=== PATIENT | female | born 1950 | race Caucasian/White ===

== ENCOUNTER 2018-05-09 12:49 | Emergency (ER) | payer MEDICARE ==
[~2018-05-09] VITALS: Ht 157.5 cm; Wt 47.6 kg
[2018-05-09 13:16] LABS: URINE BILIRUBIN NEGATIVE (Negative); URINE BLOOD NEGATIVE (Negative); URINE CLARITY CLEAR; URINE COLOR YELLOW; URINE GLUCOSE-RANDOM NEGATIVE (Negative); URINE KETONES NEGATIVE (Negative); URINE LEUKOCYTES-REFLEX NEGATIVE (Negative); URINE NITRITE-REFLEX NEGATIVE (Negative); URINE PROTEIN NEGATIVE (Negative); URINE SPECIFIC GRAVITY 1.015 (1.005-1.030); URINE UROBILINOGEN 0.2 E.U./dl (0.2-1.0)
[2018-05-09 13:34] LABS: ABSOLUTE LYMPHOCYTES 1.8 thou/uL (0.8-5.3); ABSOLUTE MONOCYTES 0.4 thou/uL (0.0-1.2); ABSOLUTE NEUTROPHILS 9.5 thou/uL (1.6-8.1); BASOPHILS 0.3 %; HEMOGLOBIN 11.3 gm/dL (12.0-15.0); LYMPHOCYTES 15.3 %; MCH 30.3 pg (26.0-34.0); MCHC 32.2 g/dL (28.0-37.0); MCV 93.9 fL (80.0-100.0); MONOCYTES 3.7 %; MPV 9.7 fl. (7.2-11.1); NUCLEATED RBCS 0 /100WBC; PLATELET COUNT* 199 thou/uL (150-400); POLYS 80.7 %; RBC 3.73 mil/uL (4.20-5.00); RDW-CV 14.1 % (10.5-14.5); WBC 11.8 thou/uL (4.0-11.0)
[2018-05-09 13:36] LABS: AMP/METHAMP Negative (Negative); BARBITURATES Negative (Negative); BENZODIAZEPINES Negative (Negative); COCAINE Negative (Negative); METHADONE Negative (Negative); OPIATES Negative (Negative); PCP Negative (Negative); THC Negative (Negative)
[2018-05-09 13:55] LABS: ANION GAP 5 mmol/L (7-16); BUN 47 mg/dL (7-18); CALCIUM 8.4 mg/dL (8.5-10.1); CHLORIDE 106 mmol/L (98-107); CO2 28 mmol/L (21-32); CREATININE 0.7 mg/dL (0.6-1.3); GLUCOSE 167 mg/dL (70-99); POTASSIUM 3.9 mmol/L (3.5-5.1); SODIUM 139 mmol/L (136-145)
[2018-05-09 14:06] LABS: ALBUMIN 3.5 g/dL (3.4-5.0); ALKALINE PHOSPHATASE 61 U/L (46-116); LIPASE 99 U/L (73-393); NT-PRO BRAIN NAT PEPTIDE 75 pg/mL (<300); SGOT 14 U/L (15-37); SGPT 20 U/L (30-65); TOTAL BILIRUBIN 0.2 mg/dL (<0.1-1.0); TOTAL PROTEIN 6.3 g/dL (6.4-8.2); TROPONIN-I LEVEL <0.06 ng/mL (<0.06)
[2018-05-09 14:39] LABS: PROTIME 10.7 Seconds (9.20-11.50)
[2018-05-09 16:00] VITALS: BP 115/70
[2018-05-09 22:05] LABS: T3 UPTAKE 28 % (24-39)
[2018-05-10] MEDS ORDERED: CENTRUM SILVER1 EAC4 PO (10:36)
[2018-05-10] MEDS ORDERED: TUMS PO (10:37)
== END 2018-05-09 16:02 | disposition home or self-care (01) ==
LOC: M.ERS 12:49
PROVIDERS: Emergency Medicine
DX: E86.0 Dehydration (principal)

== ENCOUNTER 2018-05-10 08:32 | Inpatient (IN) | payer MEDICARE ==
[~2018-05-10] VITALS: Ht 157.5 cm; Wt 50.8 kg
[2018-05-10] VITALS (15 sets, daily range): BP systolic 93–118; BP diastolic 25–61
[2018-05-10 08:48] LABS: ABSOLUTE LYMPHOCYTES 1.8 thou/uL (0.8-5.3); ABSOLUTE MONOCYTES 0.7 thou/uL (0.0-1.2); ABSOLUTE NEUTROPHILS 11.9 thou/uL (1.6-8.1); BASOPHILS 0.1 %; LYMPHOCYTES 12.4 %; MCH 30.7 pg (26.0-34.0); MCHC 32.1 g/dL (28.0-37.0); MCV 95.6 fL (80.0-100.0); MONOCYTES 4.8 %; MPV 8.8 fl. (7.2-11.1); NUCLEATED RBCS 0 /100WBC; PLATELET COUNT* 136 thou/uL (150-400); POLYS 82.7 %; RBC 1.84 mil/uL (4.20-5.00); RDW-CV 14.3 % (10.5-14.5); WBC 14.4 thou/uL (4.0-11.0)
[2018-05-10 08:54] LABS: HEMATOCRIT 17.6 % (37.0-47.0); HEMOGLOBIN 5.6 gm/dL (12.0-15.0)
[2018-05-10 09:01] LABS: APTT 20.2 Seconds (25.0-31.3); INR 1.2; PROTIME 11.8 Seconds (9.20-11.50)
[2018-05-10 09:18] LABS: ALBUMIN 2.4 g/dL (3.4-5.0); ALKALINE PHOSPHATASE 38 U/L (46-116); ANION GAP 7 mmol/L (7-16); BUN 35 mg/dL (7-18); CALCIUM 7.4 mg/dL (8.5-10.1); CHLORIDE 111 mmol/L (98-107); CK-MB MASS 0.8 ng/mL (<0.5-3.6); CO2 24 mmol/L (21-32); CREATININE 0.6 mg/dL (0.6-1.3); GLUCOSE 208 mg/dL (70-99); LIPASE 94 U/L (73-393); MAGNESIUM 1.8 mg/dL (1.8-2.4); NT-PRO BRAIN NAT PEPTIDE 101 pg/mL (<300); POTASSIUM 3.6 mmol/L (3.5-5.1); SGOT 13 U/L (15-37); SGPT 14 U/L (30-65); SODIUM 142 mmol/L (136-145); TOTAL BILIRUBIN 0.1 mg/dL (<0.1-1.0); TOTAL PROTEIN 4.4 g/dL (6.4-8.2); TROPONIN-I LEVEL <0.06 ng/mL (<0.06)
[2018-05-10] MEDS ORDERED: CENTRUM SILVER1 EAC4 PO (10:36)
[2018-05-10] MEDS ORDERED: TUMS PO (10:37)
--- NOTE | 2018-05-10 11:41 | EKG ---
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 NICOLE : 1950 Requested By: Charlie Pro Order Number: [id number] MD: Jamie Cha Measurements Intervals [place] Rate: 123 P: 65 [place]: 83 QRS: 11 QRSD: 73 T: 86 QT: 302 QTc: 432 Interpretive Statements Sinus tachycardia Nonspecific T abnormalities, lateral leads No previous ECG available for comparison Electronically Signed On 05-10-2018 11:41:06 MOTION PICTURE CAMERA OPERATOR by Jamie Cha [email or web address] <ELECTRONICALLY SIGNED> By: Jamie Cha MD, [facility] 05/10/18 1141 1300 1300 Jamie Cha MD, FACC /EPI
--- NOTE | 2018-05-10 11:47 | EKG ---
[place] [address] ELECTROCARDIOGRAM REPORT Name: LARISSA GOMEZ Room: [address] ADM IN M.R.#: [id number] Admission: 05/10/18 Attend Phys: Reema Herrera MD Discharge: Date of : 50 Report #: [id number] THIS REPORT FOR: //name// [facility] ED Test Date: 2018-05-10 Test Time: 08:35:25 Pat Name: LARISSA GOMEZ Department: Room: [facility] Gender: F Disposal Man: Carlso REY : 1950 Requested By: Filemon Parra Order Number: [id number] MD: Jamie Cha Measurements Intervals [place] Rate: 136 P: 81 [place]: 100 QRS: 35 QRSD: 68 T: 78 QT: 310 QTc: 467 Interpretive Statements Sinus tachycardia Nonspecific repol abnormality, diffuse leads Electronically Signed On 05-10-2018 11:46:46 JUTE BAG CUTTING MACHINE OPERATOR by Jamie Cha [email or web address] <ELECTRONICALLY SIGNED> By: Jamie Cha MD, [facility] 05/10/18 1146 [id number] Jamie Cha MD, FACC /EPI
[2018-05-10 16:41] LABS: ABSOLUTE LYMPHOCYTES 1.7 thou/uL (0.8-5.3); ABSOLUTE MONOCYTES 0.7 thou/uL (0.0-1.2); ABSOLUTE NEUTROPHILS 8.3 thou/uL (1.6-8.1); BASOPHILS 0.4 %; MCH 31.5 pg (26.0-34.0); MCV 92.7 fL (80.0-100.0); MONOCYTES 6.5 %; MPV 9.3 fl. (7.2-11.1); NUCLEATED RBCS 0 /100WBC; PLATELET COUNT* 102 thou/uL (150-400); POLYS 77.1 %; RBC 1.88 mil/uL (4.20-5.00); RDW-CV 13.8 % (10.5-14.5); WBC 10.8 thou/uL (4.0-11.0)
[2018-05-10 16:46] LABS: HEMATOCRIT 17.4 % (37.0-47.0); HEMOGLOBIN 5.9 gm/dL (12.0-15.0)
[2018-05-10 23:36] LABS: ABSOLUTE NEUTROPHILS 8.6 thou/uL (1.6-8.1); BASOPHILS 0.4 %; EOSINOPHILS 0.1 %; HEMATOCRIT 22.7 % (37.0-47.0); HEMOGLOBIN 7.6 gm/dL (12.0-15.0); LYMPHOCYTES 16.9 %; MCH 30.5 pg (26.0-34.0); MCHC 33.7 g/dL (28.0-37.0); MCV 90.5 fL (80.0-100.0); MONOCYTES 8.8 %; MPV 9.1 fl. (7.2-11.1); NUCLEATED RBCS 0 /100WBC; PLATELET COUNT* 82 thou/uL (150-400); POLYS 73.8 %; RDW-CV 14.1 % (10.5-14.5); WBC 11.6 thou/uL (4.0-11.0)
[2018-05-11] VITALS (15 sets, daily range): BP systolic 84–115; BP diastolic 34–62
[2018-05-11 02:07] LABS: GLYCOHEMOGLOBIN (HGB A1C) 5.4 % (4.8-5.6)
[2018-05-11 04:25] LABS: ABSOLUTE LYMPHOCYTES 1.4 thou/uL (0.8-5.3); ABSOLUTE MONOCYTES 0.8 thou/uL (0.0-1.2); ABSOLUTE NEUTROPHILS 6.3 thou/uL (1.6-8.1); BASOPHILS 0.2 %; EOSINOPHILS 0.3 %; HEMATOCRIT 22.5 % (37.0-47.0); HEMOGLOBIN 7.7 gm/dL (12.0-15.0); LYMPHOCYTES 16.4 %; MCH 31.2 pg (26.0-34.0); MCHC 34.3 g/dL (28.0-37.0); MCV 90.9 fL (80.0-100.0); MONOCYTES 8.9 %; MPV 9.2 fl. (7.2-11.1); NUCLEATED RBCS 0 /100WBC; PLATELET COUNT* 67 thou/uL (150-400); POLYS 74.2 %; RBC 2.47 mil/uL (4.20-5.00); RDW-CV 14.3 % (10.5-14.5); WBC 8.5 thou/uL (4.0-11.0)
[2018-05-11 05:14] LABS: CALCIUM 7.4 mg/dL (8.5-10.1); CREATININE 0.4 mg/dL (0.6-1.3); MAGNESIUM 1.8 mg/dL (1.8-2.4); POTASSIUM 3.3 mmol/L (3.5-5.1); TOTAL BILIRUBIN 0.4 mg/dL (<0.1-1.0); TOTAL PROTEIN 3.9 g/dL (6.4-8.2)
[2018-05-11 07:56] LABS: APTT 23.6 Seconds (25.0-31.3); INR 1.1; PROTIME 11.2 Seconds (9.20-11.50)
[2018-05-11 12:27] LABS: POTASSIUM 3.3 mmol/L (3.5-5.1)
[2018-05-11 18:29] LABS: HEMATOCRIT 20.7 % (37.0-47.0); HEMOGLOBIN 7.2 gm/dL (12.0-15.0); MCH 31.2 pg (26.0-34.0); MCHC 34.8 g/dL (28.0-37.0); MCV 89.8 fL (80.0-100.0); MPV 8.8 fl. (7.2-11.1); RBC 2.31 mil/uL (4.20-5.00); RDW-CV 13.8 % (10.5-14.5); WBC 9.5 thou/uL (4.0-11.0)
[2018-05-12] VITALS (19 sets, daily range): BP systolic 89–137; BP diastolic 39–74
[2018-05-12 05:57] LABS: ABSOLUTE EOSINOPHILS 0.1 thou/uL (0.0-0.7); ABSOLUTE LYMPHOCYTES 1.5 thou/uL (0.8-5.3); ABSOLUTE MONOCYTES 0.8 thou/uL (0.0-1.2); ABSOLUTE NEUTROPHILS 5.4 thou/uL (1.6-8.1); BASOPHILS 0.1 %; EOSINOPHILS 1.5 %; LYMPHOCYTES 19.3 %; MCH 31.3 pg (26.0-34.0); MCHC 34.3 g/dL (28.0-37.0); MCV 91.5 fL (80.0-100.0); MONOCYTES 10.6 %; MPV 9.4 fl. (7.2-11.1); NUCLEATED RBCS 0 /100WBC; PLATELET COUNT* 167 thou/uL (150-400); POLYS 68.5 %; RBC 1.87 mil/uL (4.20-5.00); RDW-CV 14.2 % (10.5-14.5); WBC 7.9 thou/uL (4.0-11.0)
[2018-05-12 06:09] LABS: ALBUMIN 2.3 g/dL (3.4-5.0); CALCIUM 7.6 mg/dL (8.5-10.1); CREATININE 0.6 mg/dL (0.6-1.3); MAGNESIUM 1.7 mg/dL (1.8-2.4); POTASSIUM 3.5 mmol/L (3.5-5.1); TOTAL BILIRUBIN 0.4 mg/dL (<0.1-1.0); TOTAL PROTEIN 4.2 g/dL (6.4-8.2)
[2018-05-12 06:14] LABS: HEMATOCRIT 17.1 % (37.0-47.0); HEMOGLOBIN 5.9 gm/dL (12.0-15.0)
[2018-05-12 09:51] LABS: APTT 23.4 Seconds (25.0-31.3); INR 1.1
--- NOTE | 2018-05-12 12:52 | CON ---
[address] [address] CONSULTATION Name: LARISSA GOMEZ Enio Room: [address] IN M.R.#: [id number] Admission: 05/10/18 Attend Phys: Reema Herrera MD Discharge: Date of : 50 Report #: [id number] THIS REPORT FOR: //name// CC: Reema Jacobo HISTORY OF PRESENT ILLNESS: This is a pleasant 68-year-old female with no significant past medical or surgical history who is presenting to the hospital with 2 days of dark colored stools. The patient reports that she began noticing dark tarry stools 2 days back, made no note of it, but she began feeling progressively weak and therefore presented to the hospital. The patient denies any significant abdominal pain, nausea, vomiting, hematemesis, hematochezia. She does report malaise and fatigue. PAST MEDICAL HISTORY: No significant past medical history. PAST SURGICAL HISTORY: None. FAMILY HISTORY: There is no family history of colorectal cancer. SOCIAL HISTORY: The patient does not smoke, but drinks 1 beer and one glass of wine per day. She denies any recreational drug use. The patient, however, does report taking two full dose aspirin, which is 650 mg of aspirin per day. The patient reports that nobody asked her to do this and she began doing it on her own. REVIEW OF SYSTEMS: A comprehensive 10-point review of systems is negative except for what is mentioned in the HPI. PHYSICAL EXAMINATION: VITAL SIGNS: Temperature 37.1, pulse rate 124, respirations 14, blood pressure 117/88, pulse ox 100%. GENERAL: The patient is alert, awake, oriented x 3. HEENT: Pupils are equal, round, reactive to light and accommodation. Mucous membranes are moist. NECK: There is no congestion. LUNGS: Clear to auscultation bilaterally. CARDIOVASCULAR: Rate and rhythm regular, S1, S2 present. There are no murmurs, rubs, or gallops. EXTREMITIES: Warm, well perfused. There is no edema. NEUROLOGIC: There is no focal neurological deficit. LABORATORY DATA: Hemoglobin 5.9, hematocrit 17.4, platelet count 102, WBC count 10.8. Sodium 142, potassium 3.6, chloride 111, BUN 35, creatinine 0.6, AST is 413, ALT 14, alkaline phosphatase 38, total bilirubin 0.1. INR 1.2. 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 ASSESSMENT AND PLAN: This is a pleasant 68-year-old female who is presenting with melena of 2 days' duration with associated weakness and lethargy. The patient also reports taking 650 mg of aspirin per day. She has no other past medical or surgical history. 1. Melena secondary to upper gastrointestinal bleed. 2. Check the H and H every 6 hours, keep the hemoglobin over 7. Place the patient on Protonix drip. We will perform EGD tomorrow. Further recommendations will be based on EGD. <ELECTRONICALLY SIGNED> By: Alex Vanegas MD 05/12/18 1252 [id number] Vanegas MD /nt
[2018-05-12 16:52] LABS: HEMATOCRIT 29.1 % (37.0-47.0)
[2018-05-13] VITALS (14 sets, daily range): BP systolic 94–137; BP diastolic 60–80
[2018-05-13 04:06] LABS: ABSOLUTE EOSINOPHILS 0.2 thou/uL (0.0-0.7); ABSOLUTE LYMPHOCYTES 1.5 thou/uL (0.8-5.3); ABSOLUTE MONOCYTES 0.6 thou/uL (0.0-1.2); ABSOLUTE NEUTROPHILS 4.3 thou/uL (1.6-8.1); BASOPHILS 0.2 %; EOSINOPHILS 3.4 %; HEMATOCRIT 25.7 % (37.0-47.0); HEMOGLOBIN 8.8 gm/dL (12.0-15.0); LYMPHOCYTES 22.3 %; MCH 29.4 pg (26.0-34.0); MONOCYTES 8.8 %; MPV 8.9 fl. (7.2-11.1); NUCLEATED RBCS 0 /100WBC; PLATELET COUNT* 155 thou/uL (150-400); POLYS 65.3 %; RBC 2.98 mil/uL (4.20-5.00); WBC 6.6 thou/uL (4.0-11.0)
[2018-05-13 04:18] LABS: MCV 86.4 fL (80.0-100.0)
[2018-05-14 04:00] VITALS: BP 119/74
[2018-05-14 05:57] LABS: ABSOLUTE EOSINOPHILS 0.2 thou/uL (0.0-0.7); ABSOLUTE MONOCYTES 0.5 thou/uL (0.0-1.2); ABSOLUTE NEUTROPHILS 3.7 thou/uL (1.6-8.1); BASOPHILS 0.3 %; EOSINOPHILS 3.4 %; HEMATOCRIT 26.5 % (37.0-47.0); LYMPHOCYTES 18.5 %; MCH 29.6 pg (26.0-34.0); MCHC 34.1 g/dL (28.0-37.0); MCV 87.1 fL (80.0-100.0); MONOCYTES 9.8 %; MPV 8.7 fl. (7.2-11.1); NUCLEATED RBCS 0 /100WBC; PLATELET COUNT* 164 thou/uL (150-400); RBC 3.05 mil/uL (4.20-5.00); RDW-CV 16.8 % (10.5-14.5); WBC 5.5 thou/uL (4.0-11.0)
[2018-05-14 06:23] LABS: ALBUMIN 2.4 g/dL (3.4-5.0); CALCIUM 7.9 mg/dL (8.5-10.1); CREATININE 0.6 mg/dL (0.6-1.3); MAGNESIUM 2.1 mg/dL (1.8-2.4); POTASSIUM 3.3 mmol/L (3.5-5.1); TOTAL BILIRUBIN 0.2 mg/dL (<0.1-1.0); TOTAL PROTEIN 4.8 g/dL (6.4-8.2)
[2018-05-14 11:56] VITALS: BP 107/56
[2018-05-14] MEDS ORDERED: CARAFATE 1 GM TA1 G1 PO (13:17)
[2018-05-14] MEDS ORDERED: PROTONIX40 M1 PO (13:18)
[2018-05-14] MEDS ORDERED: IRON325 PO (13:19)
[2018-05-14 13:20] VITALS: BP 107/56
== END 2018-05-14 14:00 | disposition home or self-care (01) | DRG 378 ==
LOC: M.ERS 08:32 → M.ICU 09:16 → M.TBA-ER 09:16 → M.ICU 10:22 → M.2W 05-11 15:51 → M.ICU 05-12 11:33 → M.2W 05-13 18:36
PROVIDERS: Family Medicine; Internal Medicine Gastroenterology; ADMIT Internal Medicine
PROC: 30233N1 Transfusion of Nonautologous Red Blood Cells into Peripheral Vein, Percutaneous Approach (ICD-10-PCS; principal; 2018-05-11)
PROC: 30233R1 Transfusion of Nonautologous Platelets into Peripheral Vein, Percutaneous Approach (ICD-10-PCS; principal; 2018-05-11)
PROC: 0DJ08ZZ Inspection of Upper Intestinal Tract, Via Natural or Artificial Opening Endoscopic (ICD-10-PCS; principal; 2018-05-11)
PROC: 30233M1 Transfusion of Nonautologous Plasma Cryoprecipitate into Peripheral Vein, Percutaneous Approach (ICD-10-PCS; principal; 2018-05-11)
PROC: 30233L1 Transfusion of Nonautologous Fresh Plasma into Peripheral Vein, Percutaneous Approach (ICD-10-PCS; principal; 2018-05-11)
PROC: 30233K1 Transfusion of Nonautologous Frozen Plasma into Peripheral Vein, Percutaneous Approach (ICD-10-PCS; principal; 2018-05-11)
DX: K25.0 Acute gastric ulcer with hemorrhage (principal); D62 Acute posthemorrhagic anemia; E44.0 Moderate protein-calorie malnutrition; E86.0 Dehydration; R73.9 Hyperglycemia, unspecified; I72.2 Aneurysm of renal artery; K29.71 Gastritis, unspecified, with bleeding; K44.9 Diaphragmatic hernia without obstruction or gangrene; Z79.82 Long term (current) use of aspirin; Z68.20 Body mass index [BMI] 20.0-20.9, adult

== ENCOUNTER → 2018-09-14 | Outpatient (CLI) | payer MEDICARE ==
[~2018-09-14] MED LIST: CARAFATE 1 GM TA1 G1 PO; CENTRUM SILVER1 EAC4 PO; IRON325 PO; PROTONIX40 M1 PO; TUMS PO
== END ==
LOC: M.RAD 08-16 12:04
DX: Z12.31 Encounter for screening mammogram for malignant neoplasm of breast (principal); M81.0 Age-related osteoporosis without current pathological fracture

== ENCOUNTER → 2019-05-16 | Outpatient (CLI) | payer MEDICARE ==
[2019-05-16 08:55] LABS: CREATININE 0.8 mg/dL (0.6-1.3)
== END ==
LOC: M.LAB 08:26 → M.CT 09:30
PROVIDERS: Surgery Vascular Surgery
DX: N20.0 Calculus of kidney (principal); I72.2 Aneurysm of renal artery; I70.0 Atherosclerosis of aorta

== ENCOUNTER 2020-05-14 08:55 | Emergency (ER) | payer MEDICARE ==
[~2020-05-14] VITALS: Ht 157.5 cm; Wt 47.6 kg
[2020-05-14 11:22] LABS: INFLUENZA A ANTIGEN Negative (Negative); INFLUENZA B ANTIGEN Negative (Negative)
[2020-05-14 12:30] LABS: URINE BILIRUBIN NEGATIVE (Negative); URINE BLOOD NEGATIVE (Negative); URINE CLARITY CLEAR; URINE COLOR YELLOW; URINE GLUCOSE-RANDOM NEGATIVE (Negative); URINE KETONES NEGATIVE (Negative); URINE LEUKOCYTES-REFLEX 1+ (Negative); URINE NITRITE-REFLEX NEGATIVE (Negative); URINE PROTEIN NEGATIVE (Negative); URINE SPECIFIC GRAVITY 1.015 (1.005-1.030); URINE UROBILINOGEN 0.2 E.U./dl (0.2-1.0)
[2020-05-14 12:46] LABS: BACTERIA-REFLEX 1-9 Few /HPF (None Seen); CASTS None Seen /LPF (None Seen); MUCUS 0-3 Light strn/LPF (None Seen); SQUAMOUS 4-10 Moderate /LPF (0-3); URINE RBC 0-2 Rare /HPF (0-2); URINE WBC-REFLEX 6-15 Few /HPF (0-5)
[2020-05-14 12:47] LABS: CRYSTALS None Seen /LPF (None Seen)
[2020-05-14 13:22] LABS: ABSOLUTE EOSINOPHILS 0.1 thou/uL (0.0-0.7); ABSOLUTE LYMPHOCYTES 1.8 thou/uL (0.8-5.3); ABSOLUTE MONOCYTES 0.5 thou/uL (0.0-1.2); ABSOLUTE NEUTROPHILS 5.3 thou/uL (1.6-8.1); BASOPHILS 0.4 %; EOSINOPHILS 0.8 %; HEMATOCRIT 49.3 % (37.0-47.0); HEMOGLOBIN 16.3 gm/dL (12.0-15.0); LYMPHOCYTES 23.6 %; MCH 30.5 pg (26.0-34.0); MCHC 33.2 g/dL (28.0-37.0); MCV 91.9 fL (80.0-100.0); MPV 8.8 fl. (7.2-11.1); NUCLEATED RBCS 0 /100WBC; PLATELET COUNT* 203 thou/uL (150-400); POLYS 68.2 %; RBC 5.36 mil/uL (4.20-5.00); RDW-CV 14.2 % (10.5-14.5); WBC 7.8 thou/uL (4.0-11.0)
[2020-05-14 13:33] LABS: CALCIUM 9.9 mg/dL (8.5-10.1); CREATININE 0.8 mg/dL (0.6-1.3)
[2020-05-14 13:44] LABS: ALBUMIN 4.1 g/dL (3.4-5.0); TOTAL BILIRUBIN 0.3 mg/dL (<0.1-1.0)
[2020-05-14] MEDS ORDERED: ONDANSETRON HCL4 M2 PO (14:17)
[2020-05-14 14:37] VITALS: BP 148/72
--- NOTE | 2020-05-14 16:46 | EKG ---
[place] [address] ELECTROCARDIOGRAM REPORT Name: LARISSA GOMEZ Room: [facility]#: [id number] Admission: 05/14/20 Attend Phys: Discharge: 05/14/20 Date of : 50 Date of Service: 05/14/20908 Report #: [id number] THIS REPORT FOR: //name// [facility] ED Test Date: 2020-05-14 Test Time: 09:09:44 Pat Name: LARISSA GOMEZ Department: Room: Gender: F Technical Operator: TDS : 1950 Requested By: Ana Maria Kaufman Order Number: [id number] MD: Mik Loftno Measurements Intervals [place] Rate: 90 P: 70 [place]: 113 QRS: 41 QRSD: 76 T: 67 QT: 343 QTc: 420 Interpretive Statements Sinus rhythm Borderline short [place] interval Baseline wander in lead(s) II,III,aVF,V3 Compared to ECG 05/10/2018 08:35:25 Sinus tachycardia no longer present Early repolarization no longer present Electronically Signed On 05-14-2020 16:45:48 WAIT STAFF by Mik Lofton [email or web address] <ELECTRONICALLY SIGNED> By: Mik Lofton MD, [facility] 05/14/20 1645 8 Mik Lofton MD, [facility] /EPI
== END 2020-05-14 14:37 | disposition home or self-care (01) ==
LOC: M.ERS 08:55
PROVIDERS: Emergency Medicine Emergency Medical Services; Nurse Practitioner Family
DX: E86.0 Dehydration (principal); Z20.828 Contact with and (suspected) exposure to other viral communicable diseases